=== PATIENT | male | born 1995 | race African-American/Black ===

== ENCOUNTER 2018-05-06 16:14 | Inpatient (IN) | payer MEDICAID, OTHER ==
[~2018-05-06] VITALS: Ht 170.2 cm; Wt 88.9 kg
[~2018-05-06 16:14] MED LIST: SERT50TA12 PO
[2018-05-06 18:55] LABS: ANION GAP 10 mmol/L (8-16); CALCIUM, TOTAL 9.5 mg/dL (8.8-10.5); CARBON DIOXIDE 26 mmol/L (22-29); CHLORIDE 105 mmol/L (98-107); CREATININE 1.22 mg/dL (0.60-1.30); GLOMERULAR FILTR. RATE CALC > 60 mL/min (>60); GLUCOSE,RANDOM 87 mg/dL (70-110); POTASSIUM 3.6 mmol/L (3.5-5.1); SODIUM SERUM 141 mmol/L (136-145); UREA NITROGEN, BLOOD 9 mg/dL (7-18)
[2018-05-06 19:00] LABS: ALANINE AMINOTRANSFERASE 30 U/L (12-78); ALBUMIN 4.1 g/dL (3.4-5.0); ALKALINE PHOSPHATASE 63 U/L (46-116); ASPARTATE AMINOTRANSFERASE 19 U/L (15-37); BASOPHILS % (AUTO) 1.1 % (0.0-2.0); BILIRUBIN,TOTAL 0.5 mg/dL (0.1-1.0); EOSINOPHILS % (AUTO) 3.3 % (1.0-6.0); HEMATOCRIT 45.9 % (41-53); HEMOGLOBIN 15.5 g/dL (13.5-17.5); LYMPHOCYTES # (AUTO) 1.5 K/uL (1.0-4.8); LYMPHOCYTES % (AUTO) 25.4 % (22.0-44.0); MEAN CORPUSCULAR HEMOGLOBIN 29.4 pg (26.0-34.0); MEAN CORPUSCULAR HGB CONC 33.7 G/dL (31.0-37.0); MEAN CORPUSCULAR VOLUME 87 fL (80-100); MONOCYTES # (AUTO) 0.6 K/uL (0.1-1.0); MONOCYTES % (AUTO) 10.2 % (2.0-9.0); NEUTROPHILS # (AUTO) 3.7 K/uL (1.8-7.7); PLATELET COUNT (AUTO) 191 K/uL (150-450); RED BLOOD CELL COUNT(AUTO) 5.26 MIL/uL (4.50-5.90); RED CELL DISTRIBUTION WIDTH 13.3 % (11.5-14.5); TOTAL PROTEIN, SERUM 7.5 g/dL (6.4-8.2)
[2018-05-06 20:42] LABS: AMPHET/METH SCREEN,URINE NEGATIVE (NEGATIVE); BARBITURATE SCREEN, URINE NEGATIVE (NEGATIVE); BENZODIAZEPINES SCREEN,URINE NEGATIVE (NEGATIVE); CANNABINOID SCREEN,URINE POSITIVE (NEGATIVE); COCAINE SCREEN,URINE NEGATIVE (NEGATIVE); METHADONE SCREEN, URINE NEGATIVE (NEGATIVE); OPIATE SCREEN,URINE NEGATIVE (NEGATIVE); PHENCYCLIDINE SCREEN,URINE NEGATIVE (NEGATIVE)
[2018-05-06] MEDS ORDERED: HALOPERIDOL 5 MG TABLET PO PRN (20:45)
[2018-05-06] MEDS ORDERED: LORazepam 1 MG TABLET PO PRN (20:45)
[2018-05-07 00:05] VITALS: BP 138/91
[2018-05-07 08:26] VITALS: BP 109/65
[2018-05-07 16:41] VITALS: BP 119/57
[2018-05-07] MEDS: DIVALPROEX SODIUM 500 MG ER TABLET PO SCH (20:33)
[2018-05-08 01:25] VITALS: BP 120/81
[2018-05-08] MEDS: ZOLPIDEM TARTRATE 10 MG TABLET PO PRN ×2 (01:31→20:56)
[2018-05-08 07:54] VITALS: BP 120/77
[2018-05-08] MEDS: SERTRALINE HCL 50 MG TABLET PO SCH (08:25)
[2018-05-08 08:46] LABS: CHOL/HDL RATIO 4.5 (4.2-7.3)
[2018-05-08 08:52] VITALS: BP 120/77
[2018-05-08 16:53] VITALS: BP 134/89
[2018-05-08] MEDS: DIVALPROEX SODIUM 500 MG ER TABLET PO SCH (20:23)
[2018-05-09 00:43] VITALS: BP 121/68
[2018-05-09 08:22] VITALS: BP 137/81
[2018-05-09] MEDS: SERTRALINE HCL 50 MG TABLET PO SCH (08:43)
[2018-05-09] MEDS ORDERED: DIVA500T52 PO (14:23)
== END 2018-05-09 15:40 | disposition home or self-care (01) | DRG 751 ==
LOC: EMS 16:15 → B2S 20:00
DX: F33.2 Major depressive disorder, recurrent severe without psychotic features (principal); R45.851 Suicidal ideations; Z91.14 Patient's other noncompliance with medication regimen; Z59.0 Homelessness; Z91.5 Personal history of self-harm; Z79.899 Other long term (current) drug therapy; F90.9 Attention-deficit hyperactivity disorder, unspecified type; F84.5 Asperger's syndrome; F12.10 Cannabis abuse, uncomplicated
CPT/HCPCS: G0480